=== PATIENT | female | born 1975 | race Caucasian/White ===

== ENCOUNTER 2017-06-13 19:11 | Emergency (ER) | payer OTHER ==
[2017-06-13] MEDS ORDERED: SODIUM CHLORIDE 0.9% 1,000 ML IV STA (19:56)
[2017-06-13] MEDS ORDERED: MECLIZINE 12.5 MG TAB PO STA (19:56)
[2017-06-13] MEDS ORDERED: ONDANSETRON 4 MG/2 ML VIAL IVP STA (19:56)
[2017-06-13] MEDS ORDERED: diphenhydrAMINE 50 MG/ML 1 ML VIAL IVP STA (19:58)
[2017-06-13] MEDS ORDERED: KETOROLAC 30 MG/ML 1 ML VIAL IVP STA (19:58)
[2017-06-13] MEDS ORDERED: SODIUM CHLORIDE 0.9% 1,000 ML IV SCH (20:00)
[2017-06-13 20:28] LABS: Basophils # (A) 0.1 k/uL (0-0.2); Basophils % (A) 1 %; CH 31.9; CHCM 33.9; Eosinophils # (A) 0.1 k/uL (0-0.7); Eosinophils % (A) 1 %; HCT 44.8 % (34.0-46.0); HDW 2.52; HGB 15.2 gm/dL (11.4-16.0); Luc % (Auto) 1; Lymphocytes # (A) 2.7 k/uL (1.0-4.8); Lymphocytes % (A) 29 %; MCH 32.1 pg (25.0-35.0); MCV 94.6 fL (80.0-100.0); Mean Platelet Volume 6.8; Monocytes # (A) 0.3 k/uL (0-1.0); Monocytes % (A) 3 %; Neutrophils # (A) 6.1 k/uL (1.3-7.7); Neutrophils % (A) 65 %; RBC 4.73 m/uL (3.80-5.40); RDW 12.4 % (11.5-15.5); WBC 9.3 k/uL (3.8-10.6); WBC (Perox) 9.28
[2017-06-13 20:41] LABS: Prothrombin Time 10.3 sec (9.0-12.0)
[2017-06-13] MEDS ORDERED: methylPREDNISolone SOD SUCCI 125 MG/2 ML VIAL IV STA (20:43)
[2017-06-13 20:45] LABS: ALT 32 U/L (9-52); AST 15 U/L (14-36); Alkaline Phosphatase 61 U/L (38-126); Anion Gap 10 mmol/L; Blood Urea Nitrogen 11 mg/dL (7-17); Calcium 9.6 mg/dL (8.4-10.2); Carbon Dioxide 21 mmol/L (22-30); Chloride 108 mmol/L (98-107); Glucose 92 mg/dL (74-99); Magnesium 1.9 mg/dL (1.6-2.3); Non-African American GFR(MDRD) >60 (>60 ml/min/1.73 sqM); Sodium 139 mmol/L (137-145); Total Bilirubin 0.6 mg/dL (0.2-1.3); Total Protein 6.7 g/dL (6.3-8.2)
--- NOTE | 2017-06-13 21:47 | CT ---
EXAMINATION TYPE: CT brain wo con DATE OF EXAM: 06/13/2017 COMPARISON: NONE HISTORY: Weakness, fever and cough CT DLP: 1090.4 mGycm. Automated Exposure Control for Dose Reduction was Utilized. TECHNIQUE: CT scan of the head is performed without contrast. FINDINGS: Ventricles have normal size. There is no mass effect nor midline shift. There is no sign of intracranial hemorrhage. The calvarium is intact. IMPRESSION: Negative CT scan of the brain..
--- NOTE | 2017-06-13 21:48 | XR ---
EXAMINATION TYPE: XR chest 2V DATE OF EXAM: 06/13/2017 COMPARISON: 12/26/2014 HISTORY: Dizziness. TECHNIQUE: Frontal and lateral views of the chest are obtained. FINDINGS: Heart and mediastinum are normal. Lungs are clear. Diaphragm is normal. There are chest le ads. Bony thorax appears intact. IMPRESSION: Normal chest. No change.
--- NOTE | 2017-06-13 22:00 | ED ---
Dizziness HPI - General Chief Complaint: Dizziness Stated Complaint: visual disturbance; dizziness Time Seen by Provider: 06/13/17 19:38 Source: patient, family, RN notes reviewed, old records reviewed Mode of arrival: ambulatory Limitations: no limitations - History of Present Illness Initial Comments: This is a 41-year-old female presents emergency department with multiple chief complaints. Patient reports that yesterday she came home from work and felt very ill and fatigued. She reports that she felt like she had generalized body aches and joint pain. She reports that she also fell and she had a racing heart rate. Patient states she's had no fever or chills. She states that today she started to become progressively worse and feels dizzy. She also reports that she occasionally has a blurriness or vision and feels like she is been feeling very confused. Also states is the worse headache she's ever had in her life. Patient states that she's had a nausea with a dull abdominal ache. She denies any other symptoms including vomiting or diarrhea. She denies any urinary symptoms. She's had a history of cardiac ablation. - Related Data Home Medications Medication Instructions Recorded Confirmed No Known Home Medications [No 06/13/17 06/13/17 Known Home Medications] Allergies Allergy/AdvReac Type Severity Reaction Status Date / Time GENERAL ANESTHESIA AdvReac "HARD TO Uncoded 06/13/17 20:51 WAKE UP AFTER" Review of Systems ROS Statement: Those systems with pertinent positive or pertinent negative responses have been documented in the HPI. ROS Other: All systems not noted in ROS Statement are negative. Past Medical History Past Medical History: Atrial Fibrillation, Fibromyalgia Additional Past Medical History / Comment(s): SVT History of Any Multi-Drug Resistant Organisms: None Reported Past Surgical History: Ablation Past Psychological History: No Psychological Hx Reported Smoking Status: Current every day smoker Past Alcohol Use History: Rare Past Drug Use History: None Reported General Exam - General Exam Comments Initial Comments: Is a 41-year-old female. Limitations: no limitations General appearance: alert, in no apparent distress Head exam: Present: atraumatic, normocephalic, normal inspection Eye exam: Present: normal appearance, PERRL, EOMI. Absent: scleral icterus, conjunctival injection, periorbital swelling ENT exam: Present: normal exam, mucous membranes moist Neck exam: Present: normal inspection. Absent: tenderness, meningismus, lymphadenopathy Respiratory exam: Present: normal lung sounds bilaterally. Absent: respiratory distress, wheezes, rales, rhonchi, stridor Cardiovascular Exam: Present: regular rate, normal rhythm, normal heart sounds. Absent: systolic murmur, diastolic murmur, rubs, gallop, clicks GI/Abdominal exam: Present: soft, normal bowel sounds. Absent: distended, tenderness, guarding, rebound, rigid Extremities exam: Present: normal inspection, full ROM, normal capillary refill. Absent: tenderness, pedal edema, joint swelling, calf tenderness Back exam: Present: normal inspection Neurological exam: Present: alert, oriented X3, CN II-XII intact Psychiatric exam: Present: normal affect, normal mood Skin exam: Present: warm, dry, intact, normal color. Absent: rash Course Vital Signs 06/13/17 06/13/17 06/13/17 19:19 20:52 22:33 Temperature 97.6 F Pulse Rate 90 86 77 Respiratory 20 20 18 Rate Blood Pressure 131/81 133/83 117/75 O2 Sat by Pulse 99 100 98 Oximetry - Reevaluation(s) Reevaluation #1: 06/13/17 22:50 Patient is reevaluated. She did not receive any medications but after IV fluid she reports that she is feeling better. Medical Decision Making - Medical Decision Making 41-year-old female with multiple complaints including headache dizziness visual disturbances. Patient received IV fluids and lab work obtained. She also seemed to be having a coughing spell and received IV Solu-Medrol. Patient underwent chest x-ray and CT. Both were negative for any acute process. All lab work was obtained and negative for any abnormalities. EKG was normal. Troponin was negative. Patient was reevaluated after just receiving IV fluids and the Solu-Medrol and states that she is feeling better percent better. Patient then received medicines for her headache including Toradol and Reglan she reports that is also helping her pain.We also offered the patient a lumbar puncture due to the severe headache however she refused. Patient was then reevaluated 1122 and states that she would like to go home. Patient will be discharged at this time with follow-up with a primary care provider. Patient case discussed with Dr. Gonzalez. - Lab Data Result diagrams: 06/13/17 20:11 06/13/17 20:11 Lab Results 06/13/17 06/13/17 06/13/17 Range/Units 20:11 20:11 20:11 WBC 9.3 (3.8-10.6) k/uL RBC 4.73 (3.80-5.40) m/uL Hgb 15.2 (11.4-16.0) gm/dL Hct 44.8 (34.0-46.0) % MCV 94.6 (80.0-100.0) fL MCH 32.1 (25.0-35.0) pg MCHC 34.0 (31.0-37.0) g/dL RDW 12.4 (11.5-15.5) % Plt Count 317 (150-450) k/uL Neutrophils % 65 % Lymphocytes % 29 % Monocytes % 3 % Eosinophils % 1 % Basophils % 1 % Neutrophils # 6.1 (1.3-7.7) k/uL Lymphocytes # 2.7 (1.0-4.8) k/uL Monocytes # 0.3 (0-1.0) k/uL Eosinophils # 0.1 (0-0.7) k/uL Basophils # 0.1 (0-0.2) k/uL PT 10.3 (9.0-12.0) sec INR 1.0 (<1.2) Sodium 139 (137-145) mmol/L Potassium 4.0 (3.5-5.1) mmol/L Chloride 108 H (98-107) mmol/L Carbon Dioxide 21 L (22-30) mmol/L Anion Gap 10 mmol/L BUN 11 (7-17) mg/dL Creatinine 0.90 (0.52-1.04) mg/dL Est GFR (MDRD) Af Amer >60 (>60 ml/min/1.73 sqM) Est GFR (MDRD) Non-Af >60 (>60 ml/min/1.73 sqM) Glucose 92 (74-99) mg/dL Calcium 9.6 (8.4-10.2) mg/dL Magnesium 1.9 (1.6-2.3) mg/dL Total Bilirubin 0.6 (0.2-1.3) mg/dL AST 15 (14-36) U/L ALT 32 (9-52) U/L Alkaline Phosphatase 61 (38-126) U/L Troponin I (0.000-0.034) ng/mL Total Protein 6.7 (6.3-8.2) g/dL Albumin 4.0 (3.5-5.0) g/dL Urine Color Urine Appearance (Clear) Urine pH (5.0-8.0) Ur Specific [place] (1.001-1.035) Urine Protein (Negative) Urine Glucose (UA) (Negative) Urine Ketones (Negative) Urine Blood (Negative) Urine Nitrite (Negative) Urine Bilirubin (Negative) Urine Urobilinogen (<2.0) mg/dL Ur Leukocyte Esterase (Negative) Urine Opiates Screen (NotDetected) Ur Oxycodone Screen (NotDetected) Urine Methadone Screen (NotDetected) Ur Propoxyphene Screen (NotDetected) Ur Barbiturates Screen (NotDetected) U Tricyclic Antidepress (NotDetected) Ur Phencyclidine Scrn (NotDetected) Ur Amphetamines Screen (NotDetected) U Methamphetamines Scrn (NotDetected) U Benzodiazepines Scrn (NotDetected) Urine Cocaine Screen (NotDetected) U Marijuana (THC) Screen (NotDetected) 06/13/17 06/13/17 Range/Units 20:11 22:40 WBC (3.8-10.6) k/uL RBC (3.80-5.40) m/uL Hgb (11.4-16.0) gm/dL Hct (34.0-46.0) % MCV (80.0-100.0) fL MCH (25.0-35.0) pg MCHC (31.0-37.0) g/dL RDW (11.5-15.5) % Plt Count (150-450) k/uL Neutrophils % % Lymphocytes % % Monocytes % % Eosinophils % % Basophils % % Neutrophils # (1.3-7.7) k/uL Lymphocytes # (1.0-4.8) k/uL Monocytes # (0-1.0) k/uL Eosinophils # (0-0.7) k/uL Basophils # (0-0.2) k/uL PT (9.0-12.0) sec INR (<1.2) Sodium (137-145) mmol/L Potassium (3.5-5.1) mmol/L Chloride (98-107) mmol/L Carbon Dioxide (22-30) mmol/L Anion Gap mmol/L BUN (7-17) mg/dL Creatinine (0.52-1.04) mg/dL Est GFR (MDRD) Af Amer (>60 ml/min/1.73 sqM) Est GFR (MDRD) Non-Af (>60 ml/min/1.73 sqM) Glucose (74-99) mg/dL Calcium (8.4-10.2) mg/dL Magnesium (1.6-2.3) mg/dL Total Bilirubin (0.2-1.3) mg/dL AST (14-36) U/L ALT (9-52) U/L Alkaline Phosphatase (38-126) U/L Troponin I <0.012 (0.000-0.034) ng/mL Total Protein (6.3-8.2) g/dL Albumin (3.5-5.0) g/dL Urine Color Light Yellow Urine Appearance Clear (Clear) Urine pH 5.0 (5.0-8.0) Ur Specific [place] 1.007 (1.001-1.035) Urine Protein Negative (Negative) Urine Glucose (UA) Negative (Negative) Urine Ketones Negative (Negative) Urine Blood Negative (Negative) Urine Nitrite Negative (Negative) Urine Bilirubin Negative (Negative) Urine Urobilinogen <2.0 (<2.0) mg/dL Ur Leukocyte Esterase Negative (Negative) Urine Opiates Screen Not Detected (NotDetected) Ur Oxycodone Screen Not Detected (NotDetected) Urine Methadone Screen Not Detected (NotDetected) Ur Propoxyphene Screen Not Detected (NotDetected) Ur Barbiturates Screen Not Detected (NotDetected) U Tricyclic Antidepress Not Detected (NotDetected) Ur Phencyclidine Scrn Not Detected (NotDetected) Ur Amphetamines Screen Not Detected (NotDetected) U Methamphetamines Scrn Not Detected (NotDetected) U Benzodiazepines Scrn Not Detected (NotDetected) Urine Cocaine Screen Not Detected (NotDetected) U Marijuana (THC) Screen Not Detected (NotDetected) 06/13/17 22:14 EKG was performed in 1958. Shows sinus rhythm with short DC. Otherwise normal EKG. Ventricular rate of 80 bpm. DC interval 106 most seconds. QRS duration 80 ms. QT QTc is 356/410 ms. No evidence of ST elevation or T-wave inversion. No atrial or ventricular arrhythmias. - Radiology Data Radiology results: report reviewed Negative computed tomography scan of the brain. Chest x-ray shows normal chest. No acute changes. Disposition Clinical Impression: Migraine, Dizziness Disposition: HOME SELF-CARE Condition: Good Instructions: Dizziness (ED), Migraine Headache (ED) Additional Instructions: Patient advised to increase fluids. Follow-up with primary care provider. Return to emergency department if any alarming signs or symptoms occur. Referrals: Juan F Purdy Jr, DO [Primary Care Provider] - 1-2 days Time of Disposition: 23:24
[2017-06-13 22:34] VITALS: RESP 18
[2017-06-13 22:56] LABS: Appearance,Urine Clear (Clear); Bilirubin,Urine Negative (Negative); Glucose,Urine (UA) Negative (Negative); Ketones,Urine Negative (Negative); Leukocyte Esterase,Urine Negative (Negative); Nitrite,Urine Negative (Negative); Protein,Urine Negative (Negative); Specific Gravity,Urine 1.007 (1.001-1.035); UA Billing (MACRO vs. MICRO) CHEM; Urobilinogen,Urine <2.0 mg/dL (<2.0)
[2017-06-13 23:38] VITALS: BP 110/59; PULSE 83; TEMP 98.6
== END 2017-06-13 23:38 | disposition home or self-care (01) ==
LOC: EC 19:11
DX: G43.909 Migraine, unspecified, not intractable, without status migrainosus (principal); F17.200 Nicotine dependence, unspecified, uncomplicated; Z88.4 Allergy status to anesthetic agent; Z53.20 Procedure and treatment not carried out because of patient's decision for unspecified reasons
CPT/HCPCS: 99285 ×2; 96374 ×2; 96375 ×4; 96361 ×4; 36415; 93005; 80053; 83735; 84484; 85025; 85610; 81003; 80306; 71020; 70450; J1200; J2930; J2405; J1885

== ENCOUNTER → 2017-12-22 | Outpatient (CLI) | payer OTHER ==
--- NOTE | 2017-12-23 11:16 | MM ---
Reason for exam: screening (asymptomatic). Baseline mammogram. History: Took hormonal contraceptives beginning at age 14. Physical Findings: Nurse did not find any significant physical abnormalities on exam. MG Screening Mammo w CAD Bilateral CC and MLO view(s) were taken. The breast tissue is extremely dense which could obscure a lesion on mammography. Finding: There is a typically benign 9 mm equal density (isodense), obscured round mass located 4 cm from the nipple in the middle position of the right breast on CC view. These results were verbally communicated with the patient and result sheet given to the patient on 12/22/17. ASSESSMENT: Incomplete: need additional imaging evaluation, BI-RAD 0 RECOMMENDATION: Ultrasound of the right breast. [facility] will attempt to contact patient to return for ultrasound.
--- NOTE | 2017-12-23 11:33 | USB ---
Reason for exam: additional evaluation requested from abnormal screening. History: Took hormonal contraceptives beginning at age 14. Physical Findings: Breast exam preformed at baseline screening. US Breast RT Right breast ultrasound includes all four quadrants, the retroareolar region and axilla. Finding demonstrates a 1.4 x 0.9 x 0.5cm cystic lesion at 1 o'clock and a 0.9 x 0.8 x 0.2cm cystic lesion at 6 o'clock. These results were verbally communicated with the patient and result sheet given to the patient on 12/22/17. ASSESSMENT: Benign, BI-RAD 2 RECOMMENDATION: Return to routine screening mammogram schedule for both breasts.
== END | disposition home or self-care (01) ==
LOC: RADMAMWWP 13:04
PROVIDERS: ATTEND Family Medicine
DX: Z12.31 Encounter for screening mammogram for malignant neoplasm of breast (principal); R92.8 Other abnormal and inconclusive findings on diagnostic imaging of breast
CPT/HCPCS: 77067

== ENCOUNTER 2018-04-30 14:41 | Emergency (ER) | payer OTHER ==
[2018-04-30 14:58] VITALS: RESP 18
[2018-04-30] MEDS ORDERED: SODIUM CHLORIDE 0.9% 1,000 ML IV STA (15:02)
[2018-04-30] MEDS ORDERED: METOCLOPRAMIDE 5 MG/ML 2 ML VIAL IVP STA (15:02)
[2018-04-30] MEDS ORDERED: MECLIZINE 12.5 MG TAB PO STA (15:02)
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
[2018-04-30 15:20] LABS: Basophils # (A) 0.1 k/uL (0-0.2); Basophils % (A) 1 %; Eosinophils # (A) 0.1 k/uL (0-0.7); Eosinophils % (A) 1 %; HCT 41.4 % (34.0-46.0); HGB 14.3 gm/dL (11.4-16.0); Lymphocytes # (A) 1.8 k/uL (1.0-4.8); Lymphocytes % (A) 23 %; MCHC 34.4 g/dL (31.0-37.0); MCV 92.8 fL (80.0-100.0); Mean Platelet Volume 6.7; Monocytes # (A) 0.3 k/uL (0-1.0); Monocytes % (A) 4 %; Neutrophils # (A) 5.4 k/uL (1.3-7.7); Neutrophils % (A) 70 %; Platelet Count 285 k/uL (150-450); RBC 4.46 m/uL (3.80-5.40); RDW 12.5 % (11.5-15.5); WBC 7.7 k/uL (3.8-10.6)
[2018-04-30 15:21] LABS: Appearance,Urine Clear (Clear); Bilirubin,Urine Negative (Negative); Blood,Urine Negative (Negative); Color,Urine Colorless; Glucose,Urine (UA) Negative (Negative); Ketones,Urine Negative (Negative); Leukocyte Esterase,Urine Negative (Negative); Nitrite,Urine Negative (Negative); PH, Urine 6.5 (5.0-8.0); Protein,Urine Negative (Negative); Specific Gravity,Urine 1.004 (1.001-1.035); Urobilinogen,Urine <2.0 mg/dL (<2.0)
[2018-04-30 15:32] LABS: ALT 26 U/L (9-52); AST 15 U/L (14-36); Albumin 3.5 g/dL (3.5-5.0); Alkaline Phosphatase 48 U/L (38-126); Anion Gap 8 mmol/L; Blood Urea Nitrogen 11 mg/dL (7-17); Calcium 9.4 mg/dL (8.4-10.2); Carbon Dioxide 22 mmol/L (22-30); Chloride 111 mmol/L (98-107); Glucose 96 mg/dL (74-99); Sodium 141 mmol/L (137-145); Total Bilirubin 0.6 mg/dL (0.2-1.3)
[2018-04-30 15:35] LABS: Amphetamine Screen,Urine Not Detected (NotDetected); Barbiturate Screen,Urine Not Detected (NotDetected); Benzodiazepines Screen,Urine Not Detected (NotDetected); Cocaine Screen,Urine Not Detected (NotDetected); Methadone Screen, Urine Not Detected (NotDetected); Opiate Screen,Urine Not Detected (NotDetected); Oxycodone Screen, Urine Not Detected (NotDetected); Phencyclidine Screen,Urine Not Detected (NotDetected); Tricyclic Antidepressant,Urine Not Detected (NotDetected); Urn Cannabinoid Scrn Not Detected (NotDetected)
[2018-04-30 16:07] VITALS: BP 115/74; PULSE 80; TEMP 98.7
== END 2018-04-30 16:17 | disposition home or self-care (01) ==
LOC: EC 14:41
DX: R42 Dizziness and giddiness (principal); F17.200 Nicotine dependence, unspecified, uncomplicated; Z88.4 Allergy status to anesthetic agent; Z88.8 Allergy status to other drugs, medicaments and biological substances
CPT/HCPCS: 36415; 93005; 80053; 84443; 84484; 85025; 81003; 80306; 99284; 96374; 96361; J2765

== ENCOUNTER 2019-01-15 18:49 | Emergency (ER) | payer OTHER ==
--- NOTE | 2019-01-15 19:34 | XR ---
EXAMINATION TYPE: XR hand complete RT DATE OF EXAM: 01/15/2019 COMPARISON: NONE HISTORY: Pain TECHNIQUE: 3 views FINDINGS: There is soft tissue swelling at the distal phalanx of the middle finger. I see no fracture nor dislocation. Joint spaces are normal. IMPRESSION: Soft tissue swelling. No fracture seen.
[2019-01-15] MEDS ORDERED: KETOROLAC 60 MG/2 ML VIAL IM STA (19:42)
--- NOTE | 2019-01-15 20:37 | ED ---
General Adult HPI - General Chief complaint: Extremity Injury, Upper Stated complaint: finger infection Time Seen by Provider: 01/15/19 18:58 Source: patient, RN notes reviewed, old records reviewed Mode of arrival: ambulatory Limitations: no limitations - History of Present Illness Initial comments: 43-year-old female patient presents to ED with injury to distal third phalanx of right hand. Patient reports that she had a crushtype injury between a wooden door, door of a toy box last night. Patient reports she has pain at the distal aspect of her phalanx. Patient for she has swelling around her nail bed. No avulsion injury. No laceration. Denies all other complaints at this time. Systemic: Pt denies fatigue, fever/chills, rash. Pt denies weakness, night sweats, weight loss. Neuro: Pt denies headache, visual disturbances, syncope or pre-syncope. HEENT: Pt denies ocular discharge or irritation, otalgia, rhinorrhea, pharyngitis or notable lymphadenopathy. Cardiopulmonary: Pt denies chest pain, SOB, heart palpitations, dyspnea on exertion. Abdominal/GI: Pt denies abdominal pain, n/v/d. : Pt denies dysuria, burning w/ urination, frequency/urgency. Denies new onset urinary or bowel incontinence. MSK: Pt denies loss of strength or function in extremities. Neuro: Pt denies new onset weakness, paresthesias. - Related Data Home Medications Medication Instructions Recorded Confirmed Dm/Acetaminophen/Doxylamine [Vicks 30 ml PO HS PRN 08/13/17 08/13/17 Nyquil Cold & Flu Liquid] Ibuprofen [Motrin] 600 mg PO ONCE PRN 08/13/17 08/13/17 Phenylephrine/Dm/Acetaminop/GG 30 ml PO Q4H PRN 08/13/17 08/13/17 [Vicks Dayquil Severe Cold-Flu] Previous Rx's Medication Instructions Recorded Azithromycin [Zithromax Z-pack] 0 mg PO DIRECTED #1 pack 08/13/17 predniSONE 50 mg PO DAILY #4 tab 08/13/17 Meclizine [Antivert] 25 mg PO TID PRN #15 tab 04/30/18 Ondansetron Odt [Zofran Odt] 4 mg PO Q8HR PRN #10 tab 04/30/18 Allergies Allergy/AdvReac Type Severity Reaction Status Date / Time magnesium sulfate Allergy Severe Anaphylaxis Verified 01/15/19 18:55 GENERAL ANESTHESIA AdvReac "HARD TO Uncoded 01/15/19 18:55 WAKE UP AFTER" Review of Systems ROS Statement: Those systems with pertinent positive or pertinent negative responses have been documented in the HPI. ROS Other: All systems not noted in ROS Statement are negative. Past Medical History Past Medical History: Atrial Fibrillation, Fibromyalgia Additional Past Medical History / Comment(s): SVT History of Any Multi-Drug Resistant Organisms: None Reported Past Surgical History: Ablation Past Psychological History: No Psychological Hx Reported Smoking Status: Current every day smoker Past Alcohol Use History: Rare Past Drug Use History: None Reported General Exam - General Exam Comments Initial Comments: Constitutional: NAD, AOX3, Pt has pleasant affect. HEENT: NC/AT, trachea midline, neck supple, no lymphadenopathy. Posterior pharynx non erythematous, without exudates. External ears appear normal, without discharge. Mucous membranes moist. Eyes PERRLA, EOM intact. There is no scleral icterus. No pallor noted. Cardiopulmonary: RRR, no murmurs, rubs or gallops, no JVD noted. Lungs CTAB in anterior and posterior barrera. No peripheral edema. Abdominal exam: Abdomen soft and non-distended. Abdomen non-tender to palpation in all 4 quadrants. Bowel sounds active in LLQ. No hepatosplenomegaly. No ecchymosis Neuro: CN II-XII grossly intact. No nuchal rigidity. MSK: Mild amount of edema to distal phalanx of third digit of right hand. Patient does have range of motion of digit with pain. Capillary refill less than 2 seconds. Radial pulse +2. No posterior calf tenderness bilaterally, homans sign negative bilaterally. Posterior tibialis and radial pulse +2 bilaterally. Sensation intact in upper and lower extremities. Full active ROM in upper and lower extremities, 5/5 stregnth. Limitations: no limitations Course Vital Signs 01/15/19 18:53 Temperature 97.8 F Pulse Rate 109 H Respiratory 16 Rate Blood Pressure 117/75 O2 Sat by Pulse 99 Oximetry Medical Decision Making - Medical Decision Making 43-year-old female patient presents to ED with injury to distal third phalanx of right hand. Patient reports that she had a crushtype injury between a wooden door, door of a toy box last night. Patient reports she has pain at the distal aspect of her phalanx. Patient for she has swelling around her nail bed. No avulsion injury. No laceration. Denies all other complaints at this time. Patient vital signs stable, afebrile. Physical exam displayed: Mild amount of edema to distal phalanx of third digit of right hand. Patient does have range of motion of digit with pain. Capillary refill less than 2 seconds. Radial pulse +2. Plain films displayed soft tissue swelling, no fracture seen. Patient placed history previous splint. Patient again and orthopedic follow-up. Patient additionally follow up with primary care provider. Patient return to ER if symptoms worsen. Case discussed with Dr. Alfaro. Disposition Clinical Impression: Finger pain Disposition: HOME SELF-CARE Condition: Stable Instructions (If sedation given, give patient instructions): Finger Sprain (ED) Additional Instructions: Patient to adhere to previously discussed treatment plan and will take medication(s) as directed. Patient to follow up with PCP in 1-2 days. Patient to return to ED if symptoms do not improve. Please wear finger splint as directed. Please follow-up with primary-care bright as well as orthopedic consult 1-2 days. Please use Tylenol and Motrin as needed for pain. Return to ER if condition worsens. Is patient prescribed a controlled substance at d/c from ED?: No Referrals: Suzanne Paula DO [Primary Care Provider] - 1-2 days Cm Paz MD [STAFF PHYSICIAN] - 1-2 days
[2019-01-15 20:47] VITALS: BP 113/83; PULSE 91; RESP 18; TEMP 97
== END 2019-01-15 20:45 | disposition home or self-care (01) ==
LOC: EC 18:49
DX: M79.644 Pain in right finger(s) (principal); I48.91 Unspecified atrial fibrillation; F17.200 Nicotine dependence, unspecified, uncomplicated; Z88.4 Allergy status to anesthetic agent; Z88.8 Allergy status to other drugs, medicaments and biological substances
CPT/HCPCS: 73130; 99284; 96372; J1885

== ENCOUNTER 2019-07-21 17:22 | Emergency (ER) | payer OTHER ==
[2019-07-21 17:48] VITALS: BP 119/96; PULSE 88; RESP 18; TEMP 98
[2019-07-21] MEDS ORDERED: KETOROLAC 30 MG/ML 1 ML VIAL IM STA (17:54)
--- NOTE | 2019-07-21 17:58 | ED ---
Fall HPI - General Chief Complaint: Fall Stated Complaint: Fall Time Seen by Provider: 07/21/19 17:39 Source: patient, EMS Mode of arrival: EMS - History of Present Illness Initial Comments: Patient is a 44-year-old female with history of fibromyalgia as presenting to emergency Department with a chief complaint of fall. Patient reports she was in a gas station when she slipped on some frozen, oily fluids and fell on the left side. Patient reports pain in the left upper arm and has limited range of motion due to pain in the left elbow. Patient has no complaints of any shoulder pain. Patient does report some left-sided rib pain along the anterior mid axillary line. Patient is also reporting pain along the left hip that radiates distally along the femur. Patient reports limited range of motion in the left hip. Patient reports the pain is exacerbated with movement and alleviated at rest. Patient denies taking medication to alleviate the symptoms. Patient was brought to the ED via EMS. - Related Data Home Medications Medication Instructions Recorded Confirmed Dm/Acetaminophen/Doxylamine [Vicks 30 ml PO HS PRN 08/13/17 08/13/17 Nyquil Cold & Flu Liquid] Ibuprofen [Motrin] 600 mg PO ONCE PRN 08/13/17 08/13/17 Phenylephrine/Dm/Acetaminop/GG 30 ml PO Q4H PRN 08/13/17 08/13/17 [Vicks Dayquil Severe Cold-Flu] Previous Rx's Medication Instructions Recorded Azithromycin [Zithromax Z-pack] 0 mg PO DIRECTED #1 pack 08/13/17 predniSONE 50 mg PO DAILY #4 tab 08/13/17 Meclizine [Antivert] 25 mg PO TID PRN #15 tab 04/30/18 Ondansetron Odt [Zofran Odt] 4 mg PO Q8HR PRN #10 tab 04/30/18 Allergies Allergy/AdvReac Type Severity Reaction Status Date / Time magnesium sulfate Allergy Severe Anaphylaxis Verified 01/15/19 18:55 GENERAL ANESTHESIA AdvReac "HARD TO Uncoded 01/15/19 18:55 WAKE UP AFTER" Review of Systems ROS Statement: Those systems with pertinent positive or pertinent negative responses have been documented in the HPI. ROS Other: All systems not noted in ROS Statement are negative. Past Medical History Past Medical History: Atrial Fibrillation, Fibromyalgia Additional Past Medical History / Comment(s): SVT History of Any Multi-Drug Resistant Organisms: None Reported Past Surgical History: Ablation Past Psychological History: No Psychological Hx Reported Smoking Status: Current every day smoker Past Alcohol Use History: Rare Past Drug Use History: None Reported General Exam Limitations: no limitations General appearance: alert, in no apparent distress Head exam: Present: atraumatic, normocephalic, normal inspection. Absent: other (Negative hemotympanum, negative. All ecchymosis, negative Dangelo sign.) Eye exam: Present: normal appearance, PERRL, EOMI Pupils: Present: normal accommodation ENT exam: Present: normal exam, normal oropharynx, mucous membranes moist, TM's normal bilaterally, normal external ear exam Neck exam: Present: normal inspection Respiratory exam: Present: normal lung sounds bilaterally, chest wall tenderness (left sided ribs along the anterior mid axillary line) Cardiovascular Exam: Present: regular rate, normal rhythm, normal heart sounds Extremities exam: Present: normal inspection, tenderness (Tenderness along the left humerus, and left hip.), normal capillary refill, other (Patient is neurovascularly intact in the left lower and upper extremity.). Absent: full ROM (Limited range of motion of left elbow and left hip.) Back exam: Present: normal inspection, full ROM. Absent: tenderness, CVA tenderness (R), CVA tenderness (L), muscle spasm, paraspinal tenderness Neurological exam: Present: alert, oriented X3 Psychiatric exam: Present: normal affect, normal mood Skin exam: Present: warm, dry, intact, normal color Course Vital Signs 07/21/19 07/21/19 17:43 18:34 Temperature 98.0 F 98.0 F Pulse Rate 88 88 Respiratory 18 18 Rate Blood Pressure 119/96 119/96 O2 Sat by Pulse 99 99 Oximetry Medical Decision Making - Medical Decision Making Patient is a 44-year-old female presenting to the emergency department with a chief complaint of a fall. There was no head trauma loss of consciousness at time of incident. Physical examination is indicative of mid humeral tenderness, left rib tenderness in the left anterior axillary line, and tenderness over the left hip and femur. X-rays of the extremities and chest are unremarkable. She was given Toradol. I suspect the patient is suffering contusions to the region. Patient will be discharged with Flexeril. Patient advised about the possible side effects of medication. Patient is able to ambulate although she is having difficulty doing it due to pain.patient advised to alternate between Tylenol and ibuprofen for pain control. Strict return parameters were thoroughly discussed the patient was understanding and agreeable. Patient advised to follow with primary care. Case discussed with physician. Disposition Clinical Impression: Fall, Contusion of left leg, Contusion of left arm Disposition: HOME SELF-CARE Condition: Stable Instructions (If sedation given, give patient instructions): Fall Prevention (ED) Additional Instructions: Please follow with primary care. Please take prescribed medication as directed. Please return to emergency department if symptoms worsen. Alternate between Tylenol and ibuprofen for pain control. Is patient prescribed a controlled substance at d/c from ED?: No Referrals: Suzanne Paula DO [Primary Care Provider] - 1-2 days Time of Disposition: 18:30
--- NOTE | 2019-07-21 18:21 | XR ---
EXAMINATION TYPE: XR femur LT DATE OF EXAM: 07/21/2019 COMPARISON: NONE HISTORY: Left thigh pain TECHNIQUE: 4 views FINDINGS: I see no fracture nor dislocation. Joint spaces are normal. There are no pathologic calcifi cations. IMPRESSION: Negative left femur exam.
--- NOTE | 2019-07-21 18:22 | XR ---
EXAMINATION TYPE: XR ribs LT w pa chest xray DATE OF EXAM: 07/21/2019 COMPARISON: 08/13/2017 HISTORY: Pain TECHNIQUE: 2 views FINDINGS: The heart and mediastinum are normal. Lungs are clear. There is no pleural effusion or pneu mothorax. The left ribs appear intact. IMPRESSION: Normal chest. Normal left ribs. Chest unchanged compared to old exam.
--- NOTE | 2019-07-21 18:23 | XR ---
EXAMINATION TYPE: XR humerus LT DATE OF EXAM: 07/21/2019 COMPARISON: NONE HISTORY: Pain TECHNIQUE: 2 views FINDINGS: Shoulder joint and elbow joint appear intact. I see no fracture nor dislocation. IMPRESSION: Negative left humerus exam.
[2019-07-21] MEDS ORDERED: CYCLOBENZAPRINE 10MG STARTER 3 TAB BTL PO STA (18:30)
== END 2019-07-21 18:43 | disposition home or self-care (01) ==
LOC: EC 17:22
DX: S40.022A Contusion of left upper arm, initial encounter (principal); S80.12XA Contusion of left lower leg, initial encounter; R07.81 Pleurodynia; F17.200 Nicotine dependence, unspecified, uncomplicated; Z88.4 Allergy status to anesthetic agent; Z88.8 Allergy status to other drugs, medicaments and biological substances; W01.0XXA Fall on same level from slipping, tripping and stumbling without subsequent striking against object, initial encounter; Y93.89 Activity, other specified; Y92.524 Gas station as the place of occurrence of the external cause
CPT/HCPCS: 71101; 73552; 73060; 99283; 96372; J1885

== ENCOUNTER 2019-09-04 14:08 | Observation (INO) | payer OTHER ==
[2019-09-04 14:57] LABS: INR 0.9 (<1.2); Partial Thromboplastin Time 26.8 sec (22.0-30.0); Prothrombin Time 9.7 sec (9.0-12.0)
[2019-09-04 15:00] LABS: Basophils # (A) 0.1 k/uL (0-0.2); Basophils % (A) 1 %; Eosinophils # (A) 0.1 k/uL (0-0.7); Eosinophils % (A) 1 %; HCT 42.8 % (34.0-46.0); HGB 14.7 gm/dL (11.4-16.0); Lymphocytes # (A) 1.8 k/uL (1.0-4.8); Lymphocytes % (A) 18 %; MCH 31.7 pg (25.0-35.0); MCHC 34.4 g/dL (31.0-37.0); MCV 92.1 fL (80.0-100.0); Mean Platelet Volume 7.2; Monocytes # (A) 0.3 k/uL (0-1.0); Monocytes % (A) 3 %; Neutrophils # (A) 7.7 k/uL (1.3-7.7); Neutrophils % (A) 76 %; Platelet Count 293 k/uL (150-450); RBC 4.65 m/uL (3.80-5.40); RDW 12.6 % (11.5-15.5); WBC 10.2 k/uL (3.8-10.6)
[2019-09-04 15:02] LABS: ALT 19 U/L (4-34); AST 25 U/L (14-36); African American GFR (CKD) >90 (>60 ml/min/1.73 sqM); Albumin 4.1 g/dL (3.5-5.0); Alkaline Phosphatase 64 U/L (38-126); Anion Gap 8 mmol/L; Blood Urea Nitrogen 8 mg/dL (7-17); Calcium 9.8 mg/dL (8.4-10.2); Carbon Dioxide 22 mmol/L (22-30); Chloride 109 mmol/L (98-107); Glucose 101 mg/dL (74-99); Non-African American GFR(CKD) >90 (>60 ml/min/1.73 sqM); Potassium 4.2 mmol/L (3.5-5.1); Sodium 139 mmol/L (137-145); Total Bilirubin 0.8 mg/dL (0.2-1.3)
--- NOTE | 2019-09-04 15:26 | XR ---
EXAMINATION TYPE: XR chest 2V DATE OF EXAM: 09/04/2019 COMPARISON: 07/21/2019 HISTORY: Chest pain TECHNIQUE: Frontal and lateral views of the chest are obtained. FINDINGS: There is no focal air space opacity, pleural effusion, or pneumothorax seen. The cardiac silhouette size is within normal limits. The osseous structures are intact. IMPRESSION: No acute cardiopulmonary process.
[2019-09-04 15:58] LABS: Appearance,Urine Clear (Clear); Bilirubin,Urine Negative (Negative); Blood,Urine Negative (Negative); Color,Urine Light Yellow; Glucose,Urine (UA) Negative (Negative); Ketones,Urine Negative (Negative); Leukocyte Esterase,Urine Negative (Negative); Nitrite,Urine Negative (Negative); PH, Urine 6.5 (5.0-8.0); Protein,Urine Negative (Negative); Specific Gravity,Urine 1.002 (1.001-1.035); Urobilinogen,Urine <2.0 mg/dL (<2.0)
[2019-09-04] MEDS ORDERED: NITROGLYCERIN OINT 1 INCH/GM PACKET TOPICAL STA (16:07)
[2019-09-04] MEDS ORDERED: ASPIRIN 81 MG PO STA (16:07)
--- NOTE | 2019-09-04 16:07 | ED ---
Chest Pain HPI - General Chief Complaint: Chest Pain Stated Complaint: chest pain Time Seen by Provider: 09/04/19 14:52 Source: patient Mode of arrival: wheelchair Limitations: no limitations - History of Present Illness Initial Comments: 44-year-old female patient with past medical history significant for SVT and atrial fibrillation presents to the emergency department today for evaluation of chest pain, neck pain, jaw pain. Patient states she has been feeling unwell since starting a new medication, oxybutynin. States she did stop this medication but she has been having pressure to her chest pain radiating into her neck and her jaw seconds. Patient states today her symptoms seemed to worsen. States she occasionally feels like her heart is beating irregularly. States she has been nauseous but has not vomited. States he has been also feeling dizzy. She does smoke cigarettes and has a family history of cardiac disease. Patient denies any recent rash, fever, chills, abdominal pain, diarrhea, constipation, back pain, numbness, tingling, dizziness, weakness, hematuria, dysuria, urinary urgency, urinary frequency, headache, visual changes, or any other complaints. - Related Data Home Medications Medication Instructions Recorded Confirmed Dm/Acetaminophen/Doxylamine [Vicks 30 ml PO HS PRN 08/13/17 08/13/17 Nyquil Cold & Flu Liquid] Ibuprofen [Motrin] 600 mg PO ONCE PRN 08/13/17 08/13/17 Phenylephrine/Dm/Acetaminop/GG 30 ml PO Q4H PRN 08/13/17 08/13/17 [Vicks Dayquil Severe Cold-Flu] Previous Rx's Medication Instructions Recorded Azithromycin [Zithromax Z-pack] 0 mg PO DIRECTED #1 pack 08/13/17 predniSONE 50 mg PO DAILY #4 tab 08/13/17 Meclizine [Antivert] 25 mg PO TID PRN #15 tab 04/30/18 Ondansetron Odt [Zofran Odt] 4 mg PO Q8HR PRN #10 tab 04/30/18 Allergies Allergy/AdvReac Type Severity Reaction Status Date / Time magnesium sulfate Allergy Severe Anaphylaxis Verified 09/04/19 14:16 GENERAL ANESTHESIA AdvReac "HARD TO Uncoded 09/04/19 14:16 WAKE UP AFTER" Review of Systems ROS Statement: Those systems with pertinent positive or pertinent negative responses have been documented in the HPI. ROS Other: All systems not noted in ROS Statement are negative. EKG Findings - EKG Comments: EKG Findings:: EKG obtained at 1428 shows normal sinus rhythm with sinus arrhythmia. Ventricular rate is 93, CA interval 136, QRS duration 88, QT 352, QTc 437. No evidence of ST elevation or depression. Past Medical History Past Medical History: Atrial Fibrillation, Fibromyalgia Additional Past Medical History / Comment(s): SVT History of Any Multi-Drug Resistant Organisms: None Reported Past Surgical History: Ablation, Tubal Ligation Past Psychological History: Depression Smoking Status: Current every day smoker Past Alcohol Use History: Rare Past Drug Use History: Marijuana General Exam Limitations: no limitations General appearance: alert, in no apparent distress, other (This is a well- developed, well-nourished adult female patient in no acute distress. Vital signs upon presentation are temperature 98.7F, pulse 86, respirations 16, blood pressure 129/86, pulse ox 100% on room air.) Eye exam: Present: normal appearance, PERRL, EOMI. Absent: scleral icterus, conjunctival injection, periorbital swelling ENT exam: Present: normal exam, normal oropharynx, mucous membranes moist Respiratory exam: Present: normal lung sounds bilaterally. Absent: respiratory distress, wheezes, rales, rhonchi, stridor Cardiovascular Exam: Present: regular rate, normal rhythm, normal heart sounds. Absent: systolic murmur, diastolic murmur, rubs, gallop, clicks GI/Abdominal exam: Present: soft, normal bowel sounds. Absent: distended, tenderness, guarding, rebound, rigid Neurological exam: Present: alert, oriented X3, CN II-XII intact Psychiatric exam: Present: normal affect, normal mood Skin exam: Present: warm, dry, intact, normal color. Absent: rash Course Vital Signs 09/04/19 14:12 Temperature 98.7 F Pulse Rate 86 Respiratory 16 Rate Blood Pressure 129/86 O2 Sat by Pulse 100 Oximetry Chest Pain [facility]: Two-view x-ray of the chest is obtained. Report was reviewed in its entirety. Impression by Dr. Salmeron shows no acute cardio pulmonary process. MDM: 44-year-old female patient presents to the emergency department today for evaluation of chest pressure, neck pain, jaw pain. She is also reporting nausea and shortness of breath. Physical examination is unremarkable. Abdomen is soft and nontender. Chest x-ray shows no acute cardiopulmonary process. Labs reviewed and are unremarkable. Initial troponin is negative. Given history of SVT and A. fib, symptoms we will admit for further evaluation by cardiology and serial troponins. Case was discussed with Dr. Hoffmann, he is agreeable with this plan. Disposition Clinical Impression: Chest pain, Palpitations Disposition: ADMITTED IP TO THIS [facility] Condition: Serious Referrals: Suzanne Paula DO [Primary Care Provider] - 1-2 days Decision to Admit Reason: Admit from EC Decision Date: 09/04/19 Decision Time: 16:23
[2019-09-04] MEDS ORDERED: NALOXONE 0.4 MG/ML 1 ML VIAL IV PRN (16:19)
[2019-09-04 18:03] VITALS: RESP 18
[2019-09-04] MEDS ORDERED: IBUPROFEN 600 MG TAB PO STA (22:48)
[2019-09-04] MEDS: PREGABALIN 100 MG CAP PO SCH (23:12)
[2019-09-04] MEDS: FLUTICASONE 110 MCG INHALER INHALATION SCH (23:50)
[2019-09-05] MEDS: FLUTICASONE 110 MCG INHALER INHALATION SCH (08:32)
[2019-09-05] MEDS ORDERED: DOBUTamine DRIP for NUC MED 500 MG in DEXTROSE/WATER 1 250ML.BAG IV ONE (08:41)
--- NOTE | 2019-09-05 08:45 | P.CRDCN ---
History of Present Illness Consult date: 09/05/19 Requesting physician: Segundo Hoffmann Reason for Consult (text): chest pain, palpitations Chief complaint: chest pressure, nausea, dizziness History of present illness: This is a pleasant 44-year-old female patient who follows up with Dr. Vazquez at [facility]. Prior history of SVT, status post ablation done here by Dr. Malhotra about 10 years ago, smoking, atrial fibrillation discovered during SVT ablation and recent diagnosis of COPD. Apparently started some new medications including Lyrica, Singulair and oxybutynin. She started them each about a week apart. She most recently started oxybutynin on August 28 and felt that altered her mental status somewhat said she felt "high". On Wednesday she felt very off and began developing some chest pressure as well as a tight ness up into her neck, difficulty swallowing and feeling as if her throat was closing off. Also had some tenderness to palpation on her neck and chest as well as felt as if her right side of her neck was swollen. Symptoms became progressively worse and yesterday she developed some waves of nausea and dizziness without vomiting. This prompted her to come to the emergency department. EKG on admission showed sinus rhythm with no ST-T wave abnormalities. Troponins have been negative 3. Chest x-ray showed no acute cardiopulmonary process. Vital signs are stable she's been afebrile. She's b een feeling well since admission but is not very active. She feels that her symptoms worsen with activity. He does have some shortness of breath and was recently started on Qvar and Singulair. She's had no palpitations, has not felt her heart racing, no syncope, no orthopnea, PND or edema. 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 Past Medical History Past Medical History: Atrial Fibrillation, Fibromyalgia, Osteoarthritis (OA) Additional Past Medical History / Comment(s): SVT, peripheral neuropathy History of Any Multi-Drug Resistant Organisms: None Reported Past Surgical History: Ablation, Tubal Ligation Past Anesthesia/Blood Transfusion Reactions: Previous Problems w/ Anesthesia Past Psychological History: Depression Additional Psychological History / Comment(s): patient reports no issues with depression at this time Smoking Status: Current every day smoker Past Alcohol Use History: Rare Past Drug Use History: Marijuana - Past Family History Mother Family Medical History: Congestive Heart Failure (CHF), Diabetes Mellitus, Osteoarthritis (OA), Seizure Disorder Additional Family Medical History / Comment(s): fibro Father Family Medical History: Hyperlipidemia Additional Family Medical History / Comment(s): arthritis, bradycardia Brother(s) Additional Family Medical History / Comment(s): bradycardia Daughter(s) Additional Family Medical History / Comment(s): IBS, adhd, depression, anxiety Son(s) Additional Family Medical History / Comment(s): aspergurs, adhd, depression Medications and Allergies Home Medications Medication Instructions Recorded Confirmed Type Beclomethasone Dip 80 Mcg/Puff 1 puff INHALATION RT-BID 09/04/19 09/04/19 History [Qvar 80 mcg] Liposomal Cbd [place] 3 spr NASAL BID 09/04/19 09/04/19 History Montelukast Sodium [Singulair] 10 mg PO DAILY 09/04/19 09/04/19 History Pregabalin [Lyrica] 200 mg PO BID 09/04/19 09/04/19 History Vitamin B Complex 1 cap PO DAILY 09/04/19 09/04/19 History Allergies Allergy/AdvReac Type Severity Reaction Status Date / Time magnesium sulfate Allergy Severe Anaphylaxis Verified 09/04/19 21:28 oxybutynin AdvReac Nausea Verified 09/04/19 21:28 GENERAL ANESTHESIA AdvReac "HARD TO Uncoded 09/04/19 21:28 WAKE UP AFTER" Physical Exam Vitals: Vital Signs Temp Pulse Pulse Resp BP BP BP 09/05/19 07:15 97.6 F 78 18 102/67 09/05/19 04:00 98.2 F 81 18 99/66 09/04/19 23:50 97.9 F 85 18 104/70 09/04/19 20:30 97.8 F 84 18 116/75 09/04/19 18:17 98.0 F 80 18 118/68 09/04/19 18:02 18 09/04/19 14:12 98.7 F 86 16 129/86 Pulse Ox 09/05/19 07:15 96 09/05/19 04:00 97 09/04/19 23:50 96 09/04/19 20:30 99 09/04/19 18:17 97 09/04/19 18:02 09/04/19 14:12 100 Intake and Output 09/04/19 09/05/19 09/05/19 22:59 06:59 14:59 Other: Voiding Method Toilet Toilet Incontinent Incontinent # Voids 1 PHYSICAL EXAMINATION: HEENT: Head is atraumatic, normocephalic. Pupils equal, round. Neck is supple. There is no elevated jugular venous pressure. HEART EXAMINATION: Heart sounds regular, S1 and S2 normal. No murmur or gallop heard. CHEST EXAMINATION: Lungs are clear to auscultation. Mild chest wall tenderness with palpation. ABDOMEN: Soft, nontender. Bowel sounds are heard. No organomegaly noted. EXTREMITIES: 2+ peripheral pulses with no evidence of peripheral edema and no calf tenderness noted. NEUROLOGIC patient is awake, alert and oriented x3. . Results 09/04/19 14:31 09/04/19 14:31 Cardiac Enzymes 09/04/19 09/04/19 09/04/19 Range/Units 14:31 14:31 20:20 AST 25 (14-36) U/L Troponin I <0.012 <0.012 (0.000-0.034) ng/mL 09/05/19 Range/Units 03:24 AST (14-36) U/L Troponin I <0.012 (0.000-0.034) ng/mL Coagulation 09/04/19 Range/Units 14:31 PT 9.7 (9.0-12.0) sec APTT 26.8 (22.0-30.0) sec CBC 09/04/19 Range/Units 14:31 WBC 10.2 (3.8-10.6) k/uL RBC 4.65 (3.80-5.40) m/uL Hgb 14.7 (11.4-16.0) gm/dL Hct 42.8 (34.0-46.0) % Plt Count 293 (150-450) k/uL Comprehensive Metabolic Panel 09/04/19 Range/Units 14:31 Sodium 139 (137-145) mmol/L Potassium 4.2 (3.5-5.1) mmol/L Chloride 109 H (98-107) mmol/L Carbon Dioxide 22 (22-30) mmol/L BUN 8 (7-17) mg/dL Creatinine 0.66 (0.52-1.04) mg/dL Glucose 101 H (74-99) mg/dL Calcium 9.8 (8.4-10.2) mg/dL AST 25 (14-36) U/L ALT 19 (4-34) U/L Alkaline Phosphatase 64 (38-126) U/L Total Protein 7.0 (6.3-8.2) g/dL Albumin 4.1 (3.5-5.0) g/dL Current Medications Generic Name Dose Route Start Last Admin Trade Name Freq PRN Reason Stop Dose Admin Fluticasone Propionate 1 puff 09/04/19 23:05 09/04/19 23:50 Flovent 110 Mcg Inhaler INHALATION 1 puff RT-BID BRANDON Administration Montelukast Sodium 10 mg 09/05/19 09:00 Singulair PO DAILY BRANDON Naloxone HCl 0.2 mg 09/04/19 16:19 Narcan IV Q2M PRN Opioid Reversal Pregabalin 200 mg 09/04/19 22:30 09/04/19 23:12 Lyrica PO 200 mg BID BRANDON Administration Intake and Output 09/04/19 09/05/19 09/05/19 22:59 06:59 14:59 Other: Voiding Method Toilet Toilet Incontinent Incontinent # Voids 1 09/04/19 14:31 09/04/19 14:31 EKG Interpretations (text) Sinus rhythm Assessment and Plan Assessment: #1 symptoms of chest pressure, neck discomfort, dizziness and nausea, EKG withou t acute changes and troponins negative 3 #2 nicotine dependence #3 family history of CAD, patient's mother had an NM in her mid 50s #4 history of SVT, status post ablation #5 COPD Plan: From Cardiology's perspective, we will obtain a 2-D echo with Doppler and a dobutamine stress echo. Ambulate the patient and look for arrhythmias. Depending on findings, further recommendations will be made. ANTHROPOLOGY LECTURER note has been reviewed, I agree with a documented findings and plan of care. Patient was seen and examined.
[2019-09-05] MEDS ORDERED: MONTELUKAST 10 MG TAB PO SCH (09:00)
--- NOTE | 2019-09-05 10:50 | ECHOF ---
Referral Reason:chest pain MEASUREMENTS -------- HEIGHT: 165.1 cm WEIGHT: 87.1 kg BP: RVIDd: 3.0 cm (< 3.3) IVSd: 1.1 cm (0.6 - 1.1) LVIDd: 4.0 cm (3.9 - 5.3) LVPWd: 1.4 cm (0.6 - 1.1) IVSs: 1.5 cm LVIDs: 3.0 cm LVPWs: 1.5 cm LA Diam: 3.1 cm (2.7 - 3.8) LAESV Index (A-L): 19.10 ml/m Ao Diam: 3.2 cm (2.0 - 3.7) AV Cusp: 1.8 cm (1.5 - 2.6) LA Diam: 3.3 cm (2.7 - 3.8) MV EXCURSION: 13.015 mm (> 18.000) MV EF SLOPE: 85 mm/s (70 - 150) EPSS: 0.3 cm MV E Maxwell: 0.76 m/s MV DecT: 130 ms MV A Maxwell: 0.55 m/s MV E/A Ratio: 1.37 RAP: 5.00 mmHg RVSP: 20.19 mmHg FINDINGS -------- Sinus rhythm. This was a technically good study. LV size, wall thickness and systolic function are normal, with an EF greater than 55%. The left jai tricular size is normal. The diastolic filling pattern is normal for the age of the patient 7.59. The right ventricle is normal in size. Normal LA size by volume 22+/-6 ml/m2. The right atrial size is normal. The aortic valve is trileaflet, and appears structurally normal. No aortic stenosis or regurgitation. The mitral valve is normal. Mild mitral regurgitation is present. Mild tricuspid regurgitation present. Right ventricular systolic pressure is normal at < 35 mmHg. The right ventricular systolic pressure, as measured by Doppler, is 20.19mmHg. There is no pulmonic regurgitation present. The aortic root size is normal. There is no pericardial effusion. CONCLUSIONS -------- 1. Sinus rhythm. 2. This was a technically good study. 3. LV size, wall thickness and systolic function are normal, with an EF greater than 55%. 4. The left ventricular size is normal. 5. The diastolic filling pattern is normal for the age of the patient 7.59 6. Normal LA size by volume 22+/-6 ml/m2. 7. The aortic valve is trileaflet, and appears structurally normal. No aortic stenosis or regurgitati on. 8. Mild mitral regurgitation is present. 9. Mild tricuspid regurgitation present. 10. Right ventricular systolic pressure is normal at < 35 mmHg. 11. There is no pulmonic regurgitation present. 12. There is no pericardial effusion. FUSION ANALYST: Sun Liu RDCS
[2019-09-05] MEDS: PREGABALIN 100 MG CAP PO SCH (10:53)
--- NOTE | 2019-09-05 11:18 | ECHOS ---
STRESS ECHOCARDIOGRAM INDICATIONS: Chest pain. MEDICATIONS: QVAR, lisinopril, CBD spray, vitamin B complex, Singulair, Lyrica BASELINE HEART RATE: 85 BASELINE BLOOD PRESSURE: 114/82 MAXIMUM HEART RATE: 159 MAXIMUM BLOOD PRESSURE: 131/68 85% MPHR: 150 100% MPHR: 176 METS: 7.7 MAXIMUM STAGE REACHED: 3 TOTAL EXERCISE TIME: 6:26 CLINICAL INFORMATION: Baseline rhythm is sinus mechanism, rate of 85, right axis deviation. Baseline blood pressure 114/82 mmHg. Patient exercised on [place] protocol for 6 minutes, 26 seconds reaching peak rate 159 beats per minute which is equal to 90% maximum predicted heart rate. Peak blood pressure 131/68 mmHg. Test was terminated secondary to fatigue, there was no chest pain. Electrocardiograph monitoring revealed no evidence of diagnostic ischemic ST deviation. FINDINGS: Baseline echocardiogram revealed normal wall thickness and motion. At peak exercise, there was normal wall motion augmentation with no hypokinesis or dyskinesis. CONCLUSION: 1. Decreased exercise tolerance with normal electrocardiographic response to exercise. 2. Normal stress echocardiogram with no evidence of stress-induced ischemia. MMODL / IJN: [id number] /
[2019-09-05 11:29] VITALS: BP 107/75; PULSE 97; TEMP 98.1
--- NOTE | 2019-09-11 08:41 | P.HPIM ---
History of Present Illness H&P Date: 09/05/19 Chief Complaint: chest pain Jacqui Solomon is a 44 yo F with PMH of SVT s/p ablation, paroxysmal A fib not currently treated, fibromyalgia. She states that she was recently started on new medications including lyrica and ditropan approximately 1-2 weeks prior to admission. She feels the oxybutinin in particular has caused her to experience side effects including feeling flushed and 'high.' Pt states that a few days prior to admission she felt chest pressure and tightness radiating into her neck. She denies palpitations, dizziness, lightheadedness or chest pain. She notes these symptoms lasted 15-20 mins at at time, worsened the next day including nausea so pt presented to the ED. She notes she had a 30 day event monitor approx 6 months ago which was apparently unremarkable. She states she was diagnosed with a fib years ago but told it was related to her SVT so after her ablation she has not required treatment. On presentation her EKG showed NSR, trop negative x3, labs and vitals stable. Review of Systems All systems: negative Constitutional: Reports sweats, Denies chills, Denies fever Eyes: denies blurred vision, denies pain Ears, nose, mouth and throat: Denies headache, Denies sore throat Cardiovascular: Reports as per HPI, Denies chest pain, Denies shortness of breath Respiratory: Denies cough Gastrointestinal: Denies abdominal pain, Denies diarrhea, Denies nausea, Denies vomiting Genitourinary: Denies dysuria, Denies hematuria Musculoskeletal: Denies myalgias Integumentary: Denies pruritus, Denies rash Neurological: Denies numbness, Denies weakness Psychiatric: Denies anxiety, Denies depression Endocrine: Denies fatigue, Denies weight change Past Medical History Past Medical History: Atrial Fibrillation, Fibromyalgia, Osteoarthritis (OA) Additional Past Medical History / Comment(s): SVT, peripheral neuropathy History of Any Multi-Drug Resistant Organisms: None Reported Past Surgical History: Ablation, Tubal Ligation Past Anesthesia/Blood Transfusion Reactions: Previous Problems w/ Anesthesia Past Psychological History: Depression Additional Psychological History / Comment(s): patient reports no issues with depression at this time Smoking Status: Current every day smoker Past Alcohol Use History: Rare Past Drug Use History: Marijuana - Past Family History Mother Family Medical History: Congestive Heart Failure (CHF), Diabetes Mellitus, Osteoarthritis (OA), Seizure Disorder Additional Family Medical History / Comment(s): fibro Father Family Medical History: Hyperlipidemia Additional Family Medical History / Comment(s): arthritis, bradycardia Brother(s) Additional Family Medical History / Comment(s): bradycardia Daughter(s) Additional Family Medical History / Comment(s): IBS, adhd, depression, anxiety Son(s) Additional Family Medical History / Comment(s): aspergurs, adhd, depression Medications and Allergies Home Medications Medication Instructions Recorded Confirmed Type Beclomethasone Dip 80 Mcg/Puff 1 puff INHALATION RT-BID 09/04/19 09/04/19 History [Qvar 80 mcg] Liposomal Cbd [place] 3 spr NASAL BID 09/04/19 09/04/19 History Montelukast Sodium [Singulair] 10 mg PO DAILY 09/04/19 09/04/19 History Pregabalin [Lyrica] 200 mg PO BID 09/04/19 09/04/19 History Vitamin B Complex 1 cap PO DAILY 09/04/19 09/04/19 History Allergies Allergy/AdvReac Type Severity Reaction Status Date / Time magnesium sulfate Allergy Severe Anaphylaxis Verified 09/04/19 21:28 oxybutynin AdvReac Nausea Verified 09/04/19 21:28 GENERAL ANESTHESIA AdvReac "HARD TO Uncoded 09/04/19 21:28 WAKE UP AFTER" Physical Exam Gen: well developed, well nourished, NAD. Vitals reviewed HEENT: normocephalic, mucus membranes moist Eyes: PERRLA, conjunctiva normal CV: RRR no mumur, pulses 2+ Lungs: clear throughout, normal effort Abd: soft, nontender, non distended Neuro: CN II-XII intact, no focal deficit Skin: warm and dry Results CBC & Chem 7: 09/04/19 14:31 09/04/19 14:31 Thrombosis Risk Factor Assmnt - Choose All That Apply Any of the Below Risk Factors Present?: Yes Each Factor Represents 1 point: Age 41-60 years, Obesity (BMI >25), Varicose veins Other Risk Factors: No Other congenital or acquired thrombophilia - If yes, enter type in comment: No Thrombosis Risk Factor Assessment Total Risk Factor Score: 3 Thrombosis Risk Factor Assessment Level: Moderate Risk Assessment and Plan (1) Chest pain Status: Acute Code(s): R07.9 - CHEST PAIN, UNSPECIFIED SNOMED Code(s): 63695941 (2) Palpitations Status: Acute Code(s): R00.2 - PALPITATIONS SNOMED Code(s): 54284372 Plan: 1. Chest discomfort. ACS ruled out. Cardiology consulted for further evaluation. Stress echo scheduled
--- NOTE | 2019-09-11 08:43 | P.DS ---
Providers Date of admission: 09/04/19 16:19 Expected date of discharge: 09/05/19 Attending physician: Segundo Hoffmann MD Consults: 09/04/19 16:19 Consult Physician Routine Consulting Provider: [facility] Consult Reason/Comments: Chest Pain; Palpitations Do you want consulting provider notified?: Yes Primary care physician: Suzanne Paula - Discharge Diagnosis(es) (1) Chest pain Status: Acute (2) Palpitations Status: Acute Hospital Course: Jacqui Solomon is a 44 yo F with PMH of SVT s/p ablation, paroxysmal A fib not currently treated, fibromyalgia. She states that she was recently started on new medications including lyrica and ditropan approximately 1-2 weeks prior to admission. She feels the oxybutinin in particular has caused her to experience side effects including feeling flushed and 'high.' Pt states that a few days prior to admission she felt chest pressure and tightness radiating into her neck. She denies palpitations, dizziness, lightheadedness or chest pain. She notes these symptoms lasted 15-20 mins at at time, worsened the next day including nausea so pt presented to the ED. She notes she had a 30 day event monitor approx 6 months ago which was apparently unremarkable. She states she was diagnosed with a fib years ago but told it was related to her SVT so after her ablation she has not required treatment. On presentation her EKG showed NSR, trop negative x3, labs and vitals stable. Pt was admitted to medicine and seen by Cardiology. She underwent a stress echocardiogram which was negative for ischemia. 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 Patient Condition at Discharge: Good Plan - Discharge Summary Discharge Rx Participant: No New Discharge Prescriptions: Continue Beclomethasone Dip 80 Mcg/Puff [Qvar 80 mcg] 1 puff INHALATION RT-BID Liposomal Cbd [place] 3 spr NASAL BID Vitamin B Complex 1 cap PO DAILY Montelukast Sodium [Singulair] 10 mg PO DAILY Pregabalin [Lyrica] 200 mg PO BID Discharge Medication List Beclomethasone Dip 80 Mcg/Puff [Qvar 80 mcg] 1 puff INHALATION RT-BID 09/04/19 [History] Liposomal Cbd [place] 3 spr NASAL BID 09/04/19 [History] Montelukast Sodium [Singulair] 10 mg PO DAILY 09/04/19 [History] Pregabalin [Lyrica] 200 mg PO BID 09/04/19 [History] Vitamin B Complex 1 cap PO DAILY 09/04/19 [History] Follow up Appointment(s)/Referral(s): Suzanne Paula DO [Primary Care Provider] - 1-2 days Patient Instructions/Handouts: Chest Pain (GEN) Discharge Disposition: HOME SELF-CARE
== END 2019-09-05 16:35 | disposition home or self-care (01) ==
LOC: EC 14:08 → 1SOBS 16:19
PROVIDERS: ADMIT Family Medicine; ATTEND Family Medicine
DX: R07.89 Other chest pain (principal); R00.2 Palpitations; M54.2 Cervicalgia; R68.84 Jaw pain; R11.0 Nausea; R42 Dizziness and giddiness; I47.1 Supraventricular tachycardia; I48.0 Paroxysmal atrial fibrillation; M79.7 Fibromyalgia; F32.9 Major depressive disorder, single episode, unspecified; M19.90 Unspecified osteoarthritis, unspecified site; G62.9 Polyneuropathy, unspecified; I83.90 Asymptomatic varicose veins of unspecified lower extremity; J44.9 Chronic obstructive pulmonary disease, unspecified; I08.1 Rheumatic disorders of both mitral and tricuspid valves; F17.210 Nicotine dependence, cigarettes, uncomplicated; E66.9 Obesity, unspecified; Z68.31 Body mass index [BMI] 31.0-31.9, adult; Z98.51 Tubal ligation status; Z79.51 Long term (current) use of inhaled steroids; Z79.899 Other long term (current) drug therapy; Z88.8 Allergy status to other drugs, medicaments and biological substances; Z91.89 Other specified personal risk factors, not elsewhere classified; Z98.890 Other specified postprocedural states; Z82.49 Family history of ischemic heart disease and other diseases of the circulatory system; Z83.3 Family history of diabetes mellitus; Z82.61 Family history of arthritis; Z82.0 Family history of epilepsy and other diseases of the nervous system; Z83.438 Family history of other disorder of lipoprotein metabolism and other lipidemia; Z83.79 Family history of other diseases of the digestive system; Z81.8 Family history of other mental and behavioral disorders
CPT/HCPCS: 93005 ×2; 99285; 36415; 94640 ×2; 93306; 93351; 80053; 84484 ×2; 85025; 85610; 85730; 81003; 71046; G0378 ×2; J1250